=== PATIENT | female | born 1995 | race Caucasian/White ===

== ENCOUNTER 2017-10-27 20:55 | Emergency (ER) | payer OTHER ==
[~2017-10-27] VITALS: Ht 170.2 cm; Wt 59.8 kg
[2017-10-28 00:23] VITALS: BP 147/83
== END 2017-10-28 00:24 | disposition home or self-care (01) ==
LOC: EME 20:55
DX: Z04.1 Encounter for examination and observation following transport accident (principal); O9A.211 Injury, poisoning and certain other consequences of external causes complicating pregnancy, first trimester; R10.9 Unspecified abdominal pain; V47.5XXA Car driver injured in collision with fixed or stationary object in traffic accident, initial encounter; Y92.411 Interstate highway as the place of occurrence of the external cause; Z3A.12 12 weeks gestation of pregnancy
CPT/HCPCS: 76801; 99281; 99284